=== PATIENT | female | born 1950 | race Caucasian/White ===

== ENCOUNTER 2021-07-31 16:02 | Emergency (ER) | payer MEDICARE, SELFPAY ==
--- NOTE | ~2021-07-31 | XR_ITS ---
EXAMINATION: XR shoulder LT min 2V DATE: 07/31/2021 17:17 INDICATION: Left shoulder pain. TECHNIQUE: 4 views of left shoulder were obtained. COMPARISON: None. FINDINGS: Bone alignment is normal. No fracture. There is mild osteoarthritis of glenohumeral joint a nd moderate osteoarthritis of acromioclavicular joint. There is calcific tendinitis of the rotator cu ff. IMPRESSION: 1. Polyarticular osteoarthritis. 2. Calcific tendinitis of the rotator cuff. Reviewed, dictated and finalized at location A.
[2021-07-31 16:06] VITALS: BP 168/76; PULSE 83; RESP 18; TEMP 37; O2SAT 99
--- NOTE | 2021-07-31 17:52 | ED.UPPEXIN ---
HPI - Extremity Injury (Upper) General Chief Complaint: Extremity Injury, Upper Stated Complaint: problem lifting arm since tuesday Time Seen by Provider: 07/31/21 17:43 History of Present Illness HPI narrative: 70-year-old female presents to the emergency room for evaluation of a left shoulder pain. Patient states 2 days ago she began experiencing left shoulder pain, and was unable to actively move her arm higher than her chest. Patient states the left shoulder pain is worse with abduction and abduction and with extension. Denies injury or trauma Related Data Allergies Allergy/AdvReac Type Severity Reaction Status Date / Time NKDA Allergy Unknown Unknown Uncoded 02/09/21 13:35 Review of Systems Review of Systems: CONSTITUTIONAL: Denies fever, chills, or sweats. EYES: Denies visual changes, redness, or discharge. ENT: Denies rhinorrhea, congestion, sore throat, or otalgia. CARDIOVASCULAR: Denies chest pain, palpitations, or edema. RESPIRATORY: Denies cough or dyspnea. GASTROINTESTINAL: Denies abdominal pain, nausea, vomiting, or diarrhea. GENITOURINARY: Denies dysuria or hematuria. SKIN: Denies rash or itching. MUSCULOSKELETAL: Reports left shoulder pain NEUROLOGIC: Denies headache, numbness, dizziness, or weakness. PSYCHIATRIC: Denies anxiety or depression. [facility] Past Medical History Medical History Acute bilateral ankle pain Alopecia, unspecified Bilateral foot pain Encounter for screening for cardiovascular disorders Mixed hyperlipidemia Osteopenia Other abnormal glucose Postmenopausal Family History Family History Father Hypertension Family history of diabetes mellitus in first degree relative Family history of heart disease in male family member before age 55 Diabetes mellitus Family history of cardiovascular disease Family history of arthritis Family history of cardiomyopathy Family history of malignant neoplasm of kidney Mother Family history of coronary artery disease Family history of heart disease in male family member before age 55 Family history of atrial fibrillation Family history of hearing loss Sibling Diabetes mellitus Family history of migraine headaches Hypertension Family history of cardiovascular disease Family history of arthritis Social History Social History Smoking status: Current every day smoker Tobacco type: cigarettes Second hand tobacco smoke exposure: Yes Alcohol intake: never Substance use: never Substance use type: does not use Exam Narrative: GENERAL: Well-appearing, well-nourished, and in no acute distress. HEAD: Normocephalic, atraumatic. EYES: PERRLA and EOMI. ENT: Nares clear, no rhinorrhea or epistaxis. Mucous membranes moist. Oropharynx without tonsillar hypertrophy exudate or other lesions. Bilateral TMs pearly whitfield nonbulging NECK: Supple. No adenopathy or masses. No carotid bruits or JVD CHEST: Clear to auscultation. No respiratory distress. No wheezes rales or rhonchi HEART: Regular rate and rhythm. No murmur heard. Normal peripheral pulses. ABDOMEN: Soft, nontender, nondistended, normal active bowel sounds. EXTREMITIES: Left shoulder: Stiffness and tenderness to the glenohumeral joint; experiences limited active range of motion, passive range of motion is preserved; no bony abnormality, no soft 's, neurovascular is intact distally SKIN: Warm, dry, no rash. NEURO: No focal deficits. Alert and oriented x3. PSYCH: Normal mood and affect. Course Vital Signs Vital signs: Vital Signs Temperature 37.0 C 07/31/21 16:06 Pulse Rate 83 07/31/21 16:06 Respiratory Rate 18 07/31/21 16:06 Blood Pressure 168/76 H 07/31/21 16:06 Pulse Oximetry 99 07/31/21 16:06 Temperature 37.0 C 07/31/21 16:06 Pulse Rate 83 07/31/21 16:06 Respiratory Rate 18 07/31
== END 2021-07-31 18:09 | disposition home or self-care (01) ==
LOC: ANHED 17:55
PROVIDERS: Emergency Provider Nurse Practitioner Family; PCP Internal Medicine
DX: M25.512 Pain in left shoulder (principal); E78.2 Mixed hyperlipidemia; M85.80 Other specified disorders of bone density and structure, unspecified site; L65.9 Nonscarring hair loss, unspecified; F17.210 Nicotine dependence, cigarettes, uncomplicated; M19.012 Primary osteoarthritis, left shoulder; M75.32 Calcific tendinitis of left shoulder
CPT/HCPCS: 73030; 96372; 99283; J1100

== ENCOUNTER 2024-07-11 14:03 | Outpatient (CLI) | payer MEDICARE, SELFPAY | END 2024-07-11 14:04 | disposition home or self-care (01) | PROVIDERS: PCP Internal Medicine; Visit Provider Nurse Practitioner | DX: I49.9 Cardiac arrhythmia, unspecified (principal) | CPT/HCPCS: 93242 ==